=== PATIENT | female | born 1980 | race Two or more races ===

== ENCOUNTER 2018-01-28 23:31 | Inpatient (IN) | payer MEDICAID ==
[~2018-01-28] VITALS: Ht 152.4 cm; Wt 68.0 kg
[2018-01-29] VITALS (25 sets, daily range): BP systolic 90–142; BP diastolic 48–86; PULSE 73–108; RESP 18–20; TEMP 98–98.3; O2SAT 96–97
[2018-01-29] MEDS ORDERED: LACTATED RINGER'S 1000 ML INJ 1,000 ML IV PRN (00:13)
[2018-01-29] MEDS ORDERED: LACTATED RINGER'S 1000 ML INJ 1,000 ML IV SCH (00:13)
[2018-01-29] MEDS ORDERED: LIDOCAINE HCL 1% 50 ML VIAL INFIL PRN (00:15)
[2018-01-29] MEDS ORDERED: MINERAL OIL 10 ML VIAL TOPICAL PRN (00:15)
[2018-01-29] MEDS ORDERED: LIDOCAINE HCL 1% 50 ML VIAL I-DERMAL PRN (00:15)
[2018-01-29] MEDS ORDERED: PENICILLIN G POTASSIUM INJ 5,000,000 UNITS in SODIUM CHLORIDE 0.9% INJ 100 ML IV ONE (00:15)
[2018-01-29] MEDS ORDERED: SODIUM CHLORID 0.9% 500 ML INJ 500 ML IV PRN (00:15)
[2018-01-29] MEDS ORDERED: CITRIC ACID-SODIUM CITRATE LIQ 30 ML UDC PO SCH (00:15)
[2018-01-29] MEDS ORDERED: OXYTOCIN 30 UNITS-500ML PREMIX 500 ML IV ONE (00:15)
--- NOTE | 2018-01-29 00:20 | HHI.HP ---
HPI Chief Complaint Leaking fluid and contraction pain Date Seen: Jan 29, 2018 Time Seen: 00:15 Travel History International Travel<30 Days: No Contact w/Intl Traveler<30Days: No Known Affected Area: No History of Present Illness HPI 37-year-old at 38 weeks's been going to Dr. Lee for care now presents with contraction pain and leaking fluid. Her amnisure is negative today. And she is cassidy. heart rate tracing is reactive Weeks Gestation: 38 Para: 1 : 2 History Obstetric History Obstetric History 1 vaginal delivery at 27 weeks due to abruption after a fall Past Surgical History Narrative Surgical Patient had a laparotomy for ovarian cysts in the past Social History Alcohol Use: No Tobacco Use: No Substance Abuse: No Allergies-Medications (Allergen,Severity, Reaction): Coded Allergies: No Known Allergies (Unverified , 01/29/18) Review of Systems General / Constitutional: No: Fever, Weight Gain, Chills, Other Eyes: No: Diploplia, Blurred Vision, Visual changes, Pain, Photophobia HENT: No: Headaches, Vertigo, Lightheadedness Cardiovascular: No: Irregular Rhythm, Chest Pain or Discomfort, Palpitations, Tachycardia, Syncope, Varicosities, Edema, Cyanosis Respiratory: No: Cough, Short of Breath, Other Gastrointestinal: Abdominal Pain, No: Nausea, Vomiting, Diarrhea Genitourinary: No: Decreased Urinary Output, Oliguria Musculoskeletal: No: Limited ROM, Weakness, Cramping, Edema, Pain Skin: No Rash, No Itching, No Dryness, No Lumps, No Change in Pigmentation, No Change in Nails, No Alopecia, No Lesions Neurologic: No: Weakness, Dizziness, Syncope, Focal Abnormalities, Coordination Problem, Headache, Slurred Speech, Seizures Psychiatric: No: Depression, Suicidal Ideations, Homicidal Ideation Endocrine: No: Heat Intolerance, Cold Intolerance, Polydipsia, Polyuria, Other Physical Exam Narrative GENERAL: Well-nourished, well-developed patient. SKIN: Warm and dry. HEAD: Normocephalic and atraumatic. EYES: No scleral icterus. No injection or drainage. ENT: No nasal drainage noted. Mucous membranes pink. Airway patent. NECK: Supple, trachea midline. No JVD. CARDIOVASCULAR: Regular rate and rhythm without murmurs, gallops, or rubs. RESPIRATORY: Breath sounds equal bilaterally. No accessory muscle use. BREASTS: Bilateral exam showed no masses , no retractions, no nipple discharge. ABDOMEN/GI: Abdomen soft, non-tender, bowel sounds present, no rebound, no guarding Gravid to [38-] weeks size Fundal Height: [38-] GENITOURINARY: External Genitalia: intact and normal in appearance BUS glands: [-] Cervix: [post-] Dilatation: [-3] Effacement: [100-] Station: [-1] Presentation: [vtx-] Membranes: [intact ] Uterine Contractions: [q 4 min-] FHT's: Category: [1-] Baseline: [133-] Reactive: [R-] Variability: [mod-] Decels: [-none] EXTREMITIES: No cyanosis or edema. BACK: Nontender without obvious deformity. No CVA tenderness. NEUROLOGICAL: Awake and alert. Motor and sensory grossly within normal limits. Five out of 5 muscle strength in all muscle groups. Normal speech. Caprini VTE Risk Assessment Caprini VTE Risk Assessment: No/Low Risk (score <= 1) Caprini Risk Assessment Model Point Value = 1 Point Value = 2 Point Value = 3 Point Value = 5 Age 41-60 Minor surgery BMI > 25 kg/m2 Swollen legs Varicose veins or History of unexplained or recurrent spontaneous Oral contraceptives or hormone replacement Sepsis (< 1 month) Serious lung disease, including pneumonia (< 1 month) Abnormal pulmonary function Acute myocardial infarction Congestive heart failure (< 1 month) History of inflammatory bowel disease Medical patient at bed rest Age 61-74 Arthroscopic surgery Major open surgery (> 45 min) Laparoscopic surgery (> 45 min) Malignancy Confined to bed (> 72 hours) Immobilizing plaster cast Central venous access Age >= 75 History of VTE Family history of VTE Factor V Leiden Prothrombin [id number] Lupus anticoagulant Anticardiolipin antibodies Elevated serum homocysteine Heparin-induced thrombocytopenia Other congenital or acquired thrombophilia Stroke (< 1 month) Elective arthroplasty Hip, pelvis, or leg fracture Acute spinal cord injury (< 1 month) Prophylaxis Regimen Total Risk Factor Score Risk Level Prophylaxis Regimen 0-1 Low Early ambulation 2 Moderate Order ONE of the following: *Sequential Compression Device (SCD) *Heparin 5000 units SQ BID 3-4 Higher Order ONE of the following medications: *Heparin 5000 units SQ TID *Enoxaparin/Lovenox 40 mg SQ daily (WT < 150 kg, CrCl > 30 mL/min) *Enoxaparin/Lovenox 30 mg SQ daily (WT < 150 kg, CrCl > 10-29 mL/min) *Enoxaparin/Lovenox 30 mg SQ BID (WT < 150 kg, CrCl > 30 mL/min) AND/OR *Sequential Compression Device (SCD) 5 or more Highest Order ONE of the following medications: *Heparin 5000 units SQ TID (Preferred with Epidurals) *Enoxaparin/Lovenox 40 mg SQ daily (WT < 150 kg, CrCl > 30 mL/min) *Enoxaparin/Lovenox 30 mg SQ daily (WT < 150 kg, CrCl > 10-29 mL/min) *Enoxaparin/Lovenox 30 mg SQ BID (WT < 150 kg, CrCl > 30 mL/min) AND *Sequential Compression Device (SCD) Data Data Orders Orders Admit To Inpatient (01/29/18 ) Vital Signs (Adult) .Per protocol (01/29/18 00:13) Heart (01/29/18 00:13) Amnioinfusion (01/29/18 00:13) Urinary Catheter Management .ONCE (01/29/18 00:13) Lactated Ringer's 1000 Ml Inj (Lr 1000 M (01/29/18 00:13) Lactated Ringer's 1000 Ml Inj (Lr 1000 M (01/29/18 00:13) Sodium Chlorid 0.9% 500 Ml Inj (Ns 500 M (01/29/18 00:15) Sodium Chlor 0.9% 1000 Ml Inj (Ns 1000 M (01/29/18 00:33) Lidocaine 1% Inj (50 Ml) (Xylocaine 1% I (01/29/18 00:15) Citric Acid-Sodium Citrate Liq (Bicitra (01/29/18 00:15) Fentanyl Inj (Fentanyl Inj) (01/29/18 00:15) Fentanyl Inj (Fentanyl Inj) (01/29/18 00:15) Penicillin G Potassium Inj (Pfizerpen-G (01/29/18 00:15) Penicillin G Potassium Inj (Pfizerpen-G (01/29/18 04:15) Complete Blood Count With Diff (01/29/18 00:13) Hold Clot (01/29/18:) Abo/Rh Blood Type (01/29/18:) Urinalysis - C+S If Indicated (01/29/18:) Drug Screen, Random Urine (01/29/18:) Ob/Psych Drug Screen, Urine (01/29/18:) Type And Screen (01/29/18:) Resp Oxygen Non Rebreathe Mask (01/29/18 ) ^ Epidural / Intrathecal Infus (01/29/18:) Oxytocin 30 Units-500ml Premix (Pitocin (01/29/18:15) Lidocaine 1% Inj (50 Ml) (Xylocaine 1% I (01/29/18:) Light Mineral Oil (Muri-Lube Oil) (01/29/18:) Assessment/Plan Assessment and Plan Patient is 37-year-old at 38 weeks presents in labor. Cervix 3/100 /-1, positive bloody show, intact membranes amnisure is negative, contractions noted, heart rate tracing reactive Plan-admit to labor and delivery, managed labor appropriately, anticipate vaginal delivery Carlos Ward II, MD Jan 29, 2018 00:20
[2018-01-29] MEDS ORDERED: SODIUM CHLOR 0.9% 1000 ML INJ 1,000 ML IV PRN (00:33)
[2018-01-29 01:14] LABS: BASOPHIL # 0.1 TH/MM3 (0-0.2); BASOPHIL % 0.8 % (0.0-2.0); EOSINOPHIL % 0.2 % (0.0-4.0); HEMATOCRIT 33.8 % (35.0-46.0); HEMOGLOBIN 11.6 GM/DL (11.6-15.3); LYMPHOCYTE # 2.4 TH/MM3 (1.0-4.8); MEAN CELL VOLUME 87.6 FL (80.0-100.0); MEAN CORPUSCULAR HGB CONC 34.3 % (32.0-36.0); MONO % 5.6 % (0.0-8.0); MONOCYTE # 0.7 TH/MM3 (0-0.9); NEUT % 75.4 % (16.0-70.0); PLATELET COUNT 193 TH/MM3 (150-450); RED BLOOD COUNT 3.86 MIL/MM3 (4.00-5.30); RED CELL DISTRIBUTION WIDTH 12.3 % (11.6-17.2); WHITE BLOOD COUNT 13.2 TH/MM3 (4.0-11.0)
[2018-01-29 01:14] LABS: BACTERIA, URINE OCC /hpf; BILIRUBIN, URINE NEG (NEG); BLOOD, URINE LARGE (NEG); GLUCOSE,URINE NEG (NEG); KETONE, URINE NEG (NEG); MUCUS URINE FEW /lpf (OCC); NITRITE,URINE NEG (NEG); SQUAMOUS EPITHELIAL CELL URINE 30 /hpf (0-5); URINE COLOR YELLOW (YELLW/STRAW); URINE LEUKOCYTE ESTERASE TRACE (NEG)
[2018-01-29] MEDS ORDERED: PRENTAB7 (01:17)
[2018-01-29] MEDS ORDERED: fentaNYL 2MCG-BUPIV 0.125% INJ 100 ML ONE (01:24)
[2018-01-29] MEDS ORDERED: LIDOCAINE HCL 1% PF 30 ML VIAL ONE (01:25)
[2018-01-29 01:43] LABS: BANDS 1 % (0-6); LYMPHOCYTES 16 % (9-44); METAMYELOCYTES 2 % (0-1); MONOCYTES 2 % (0-8); MYELOCYTES 1 % (0-0); NEUTROPHIL # MANUAL DIFF 10.8 TH/MM3 (1.8-7.7); POLYS (SEG NEUTROPHILS) 78 % (16-70)
[2018-01-29] MEDS ORDERED: SODIUM CHLORIDE 0.9% FLUSH 10 ML FLUSH IV FLUSH PRN (02:30)
[2018-01-29] MEDS ORDERED: ACETAMINOPHEN 325 MG TAB PO PRN (02:30)
[2018-01-29] MEDS ORDERED: BENZOCAINE 20% TOPICAL SPRAY 60 ML CAN TOPICAL PRN (02:30)
[2018-01-29] MEDS ORDERED: ZOLPIDEM TARTRATE 5 MG TAB PO PRN (02:30)
[2018-01-29] MEDS ORDERED: WITCH HAZEL 50%/GLYCERIN 12.5% 40 PAD JAR TOPICAL PRN (02:30)
[2018-01-29] MEDS ORDERED: ALUMINUM/MAGNESIUM/SIMETH 30 ML CUP PO PRN (02:30)
[2018-01-29] MEDS ORDERED: ONDANSETRON ODT 4 MG TAB PO PRN (02:30)
[2018-01-29] MEDS ORDERED: OXYTOCIN 30 UNITS-500ML PREMIX 500 ML IV SCH (02:30)
--- NOTE | 2018-01-29 02:31 | PD.OB.DELI ---
Weeks gestation: 38 Anesthesia: Epidural Episiotomy: None Vaginal Delivery: Normal Presentation: Occiput anterior Nuchal Cord: None Delayed cord clamping (45 sec): Yes : Female Delivery date: Jan 29, 2018 Delivery time: 02:19 One Minute : 8 Five Minute : 9 Weight: 2875 gm Placenta: Spontaneous delivery Laceration: Perineal laceration, 1 deg Repair: Chromic running Estimated blood loss: 200 cc Carlos Ward II, MD Jan 29, 2018 02:31
[2018-01-29] MEDS ORDERED: PENICILLIN G POTASSIUM INJ 2,500,000 UNITS in SODIUM CHLORIDE 0.9% INJ 100 ML IV SCH (04:15)
--- NOTE | 2018-01-29 08:13 | HHI.OB ---
Subjective Post Day: 0 Remarks Ms Nesbitt had no acute events this morning. Her pain is not well controlled but has not received any pain medication this morning yet. She is a little dizzy upon standing, but is tolerating PO and voiding. She has not had a BM and there is no flatus yet. Lochia is normal. Performed the interview via [facility] with Bhaskar romero. Pt has requested depo-provera contraception prior to discharge. No other questions at this time. Objective Vitals/I&O Vital Signs Date Time Temp Pulse Resp B/P (MAP) Pulse Ox O2 Delivery O2 Flow Rate FiO2 01/29/18 07:52 98.0 01/29/18 07:52 88 20 114/71 (85) 97 01/29/18 04:50 98.3 75 18 121/76 (91) 01/29/18 03:45 18 01/29/18 03:30 75 115/77 (90) 01/29/18 03:16 81 105/53 (70) 01/29/18 03:15 18 01/29/18 03:01 99 129/80 (96) 01/29/18 02:45 20 01/29/18 02:31 90/48 (62) 01/29/18 02:31 94 01/29/18 02:10 102 01/29/18 02:00 120/73 (89) 01/29/18 01:55 107 01/29/18 01:54 22 01/29/18 01:52 111/65 (80) 01/29/18 01:49 117/72 (87) 01/29/18 01:45 84 114/72 (86) 01/29/18 01:44 73 01/29/18 01:38 142/75 (97) 01/29/18 01:25 86 01/29/18 00:40 82 01/29/18 00:15 18 01/29/18 00:15 97 01/29/18 00:10 90 01/29/18 00:05 89 01/29/18 00:04 92 126/86 (99) 01/29/18 00:00 108 Objective Remarks GENERAL: Well-nourished, well-developed patient sitting up in bed in NAD. CARDIOVASCULAR: Regular rate and rhythm without murmurs, gallops, or rubs. RESPIRATORY: Breath sounds equal bilaterally. No accessory muscle use. No increased WOB. ABDOMEN/GI: Abdomen soft, non-tender. Fundus: Firm, non-tender at umbilicus. GENITOURINARY: Light to moderate bleeding. EXTREMITIES: No cyanosis or edema, non-tender, without signs of DVT. Medications and IVs Current Medications Medications (Trade) Dose Ordered Sig/Duke Route Start Time Stop Time Status Last Admin (NS Flush) 2 ml BID IV FLUSH 01/29/18 09:00 (NS Flush) 2 ml UNSCH PRN IV FLUSH 01/29/18 02:30 (Tylenol) 650 mg Q4H PRN PO 01/29/18 02:30 (Motrin) 800 mg Q8H PRN PO 01/29/18 02:30 (Percocet 5-325 Mg) 1 tab Q4H PRN PO 01/29/18 02:30 (Americaine 20% Top Spr) 1 spray Q4H PRN TOPICAL 01/29/18 02:30 (Tucks Pads) 1 applic QID PRN TOPICAL 01/29/18 02:30 (Nuha-Colace) 2 tab Q12H PRN PO 01/29/18 02:30 (Ambien) 5 mg HS PRN PO 01/29/18 02:30 (M-M-R Ii Inj) 0.5 ml ONCE ONCE SQ 01/29/18 16:00 01/29/18 16:01 (Boostrix Inj) 0.5 ml ONCE ONCE IM 01/29/18 16:00 01/29/18 16:01 (Mag-Al Plus Susp Liq) 15 ml Q8H PRN PO 01/29/18 02:30 (Zofran Odt) 4 mg Q6H PRN PO 01/29/18 02:30 Assessment/Plan Assessment and Plan 37-year-old delivered at 38/3 weeks and is PPD#0. Will get pain medication started, monitor for dizziness, tolerating PO and voiding. No BM or flatus yet and suspect likely 2/2 pain control at this point. Lochia is normal. Physical exam benign. 1. Routine care -Ibuprofen and tylenol for pain PRN -Encourage PO hydration -Ambulation with assistance for now due to mild dizziness with standing -Depo-provera injection prior to discharge -Encouraged showers for first 2 weeks -Advised to observe pelvic rest for 6 weeks -F/u with OB doctor at 6 weeks Anticipate discharge 1-2 days Pt seen with Dr Warren Foss, and richie Ward Discharge Planning 1-2 days Durga Yanez MD R1 Jan 29, 2018 08:13
[2018-01-29] MEDS: oxyCODONE/ACETAMINOPHEN 5 MG/325 MG TAB PO PRN ×3 (08:23→17:19)
[2018-01-29] MEDS: SODIUM CHLORIDE 0.9% FLUSH 10 ML FLUSH IV FLUSH SCH (08:23)
[2018-01-29] MEDS: DOCUSATE SODIUM 50 MG/SENNA 8.6 MG TAB PO PRN (08:23)
[2018-01-29] MEDS: IBUPROFEN 800 MG TAB PO PRN ×2 (08:23→17:19)
[2018-01-29] MEDS ORDERED: medroxyPROGESTERone ACETATE SUSP 150 MG/ML SYRINGE IM ONE (09:00)
[2018-01-29] MEDS ORDERED: DIPHTH/TETANUS/ACEL PERTUSSIS (BOOSTER) 0.5 ML VIAL/PFS IM ONE (16:00)
[2018-01-29] MEDS ORDERED: MEASLES, MUMPS, RUBELLA VACCINE 0.5 ML VIAL SQ ONE (16:00)
[2018-01-30] MEDS: oxyCODONE/ACETAMINOPHEN 5 MG/325 MG TAB PO PRN ×2 (02:14→17:43)
[2018-01-30] MEDS: IBUPROFEN 800 MG TAB PO PRN ×2 (02:14→17:43)
[2018-01-30] MEDS: SODIUM CHLORIDE 0.9% FLUSH 10 ML FLUSH IV FLUSH SCH (09:24)
--- NOTE | 2018-01-30 09:24 | HHI.OB ---
Subjective Post Day: 1 Remarks PPD #1. No acute events over 24hr. Pain well controlled. Ambulating without difficulty, tolerating PO and voiding. Lochia is normal. Performed the interview via [employer] with Vernell Barriga interpreting. Pt has requested Depo- Provera contraception prior to discharge. No other questions at this time. Objective Vitals/I&O Vital Signs Date Time Temp Pulse Resp B/P (MAP) Pulse Ox O2 Delivery O2 Flow Rate FiO2 01/29/18 20:00 98.0 01/29/18 20:00 73 18 96 01/29/18 20:00 94/58 (70) Objective Remarks GENERAL: Well-nourished, well-developed patient sitting up in bed in NAD. CARDIOVASCULAR: Regular rate and rhythm without murmurs, gallops, or rubs. RESPIRATORY: Breath sounds equal bilaterally. No accessory muscle use. No increased WOB. ABDOMEN/GI: Abdomen soft, non-tender. Fundus: Firm, non-tender at umbilicus. GENITOURINARY: Light to moderate bleeding. EXTREMITIES: No cyanosis or edema, non-tender, without signs of DVT. Medications and IVs Current Medications Medications (Trade) Dose Ordered Sig/Duke Route Start Time Stop Time Status Last Admin (NS Flush) 2 ml BID IV FLUSH 01/29/18 09:00 01/29/18 08:23 (NS Flush) 2 ml UNSCH PRN IV FLUSH 01/29/18 02:30 (Tylenol) 650 mg Q4H PRN PO 01/29/18 02:30 (Motrin) 800 mg Q8H PRN PO 01/29/18 02:30 01/30/18 02:14 (Percocet 5-325 Mg) 1 tab Q4H PRN PO 01/29/18 02:30 01/30/18 02:14 (Americaine 20% Top Spr) 1 spray Q4H PRN TOPICAL 01/29/18 02:30 01/29/18 08:37 (Tucks Pads) 1 applic QID PRN TOPICAL 01/29/18 02:30 01/29/18 08:37 (Nuha-Colace) 2 tab Q12H PRN PO 01/29/18 02:30 01/29/18 08:23 (Ambien) 5 mg HS PRN PO 01/29/18 02:30 (Mag-Al Plus Susp Liq) 15 ml Q8H PRN PO 01/29/18 02:30 (Zofran Odt) 4 mg Q6H PRN PO 01/29/18 02:30 Assessment/Plan Assessment and Plan 37-year-old delivered at 38/3 weeks and is PPD#1 s/p . Wants to go home today. 1. Routine care -Ibuprofen and Tylenol for pain PRN -Encourage PO hydration -Ambulation with assistance for now due to mild dizziness with standing -Depo-Provera injection prior to discharge -Encouraged showers for first 2 weeks -Advised to observe pelvic rest for 6 weeks -F/u with OB doctor at 6 weeks Anticipate discharge today or tomorrow SHONA Calvo Discharge Planning 1-2 days Stephanie Foss MD R2 Jan 30, 2018 09:24
[2018-01-30] MEDS ORDERED: IBUP1TAB7 PO (10:31)
[2018-01-30] MEDS ORDERED: ACET325T15 PO (10:32)
--- NOTE | 2018-01-30 10:32 | HHI.DCPOC ---
Discharge Care Plan Diagnosis: (1) Normal vaginal delivery Report Symptoms to Your Doctor -Temperature above 100.5 degrees -Redness, of incision or excessive or foul smelling drainage -Unusual pain or calf pain -Increased vaginal bleeding -Painful or difficulty urinating -Feelings of extreme sadness or anxiety after 2 weeks Goals to Promote Your Health * To prevent worsening of your condition and complications * To maintain your health at the optimal level Directions to Meet Your Goals Take your medications as prescribed Follow your dietary instruction Follow activity as directed Ensure plenty of rest for recovery Drink fluids for hydration Keep your appointments as scheduled Take your immunizations and boosters as scheduled If your symptoms worsen call your PCP, if no PCP go to Urgent Care Center or Emergency Room Smoking is Dangerous to Your Health. Avoid second hand smoke Call the 24-hour crisis hotline for domestic abuse at Stephanie Foss MD R2 Jan 30, 2018 10:32
[2018-01-30] MEDS ORDERED: medroxyPROGESTERone ACETATE SUSP 150 MG/ML SYRINGE IM ONE (13:00)
[2018-01-30] MEDS: DOCUSATE SODIUM 50 MG/SENNA 8.6 MG TAB PO PRN (17:43)
== END 2018-01-30 18:41 | disposition home or self-care (01) | DRG 775 ==
LOC: HOBED 23:31 → H2EA 01-29 00:17 → H1EA 01-29 04:40
PROVIDERS: ADMIT Obstetrics & Gynecology Maternal & Fetal Medicine; ATTEND Obstetrics & Gynecology Maternal & Fetal Medicine
PROC: 10E0XZZ Delivery of Products of Conception, External Approach (ICD-10-PCS; principal; 2018-01-29)
PROC: 0HQ9XZZ Repair Perineum Skin, External Approach (ICD-10-PCS; 2018-01-29)
DX: O70.0 First degree perineal laceration during delivery (principal); Z37.0 Single live birth; Z3A.38 38 weeks gestation of pregnancy
CPT/HCPCS: 80307; 81001; 84112; 85007; 85027; 86850; 86900; 86901; 87086; 90715; 99283; G0481; J1050; J2540; J7120